=== PATIENT | female | born 1935 | race Caucasian/White ===

== ENCOUNTER 2016-09-11 17:14 | Emergency (ER) | payer MEDICARE ==
--- NOTE | 2016-09-11 17:49 | ED Physician Documentation ---
General Adult - HISTORIAN Historian: patient, spouse - HPI Stated Complaint: abd pain Chief Complaint: General Adult Onset: hours Timing: still present Severity: moderate Further Comments: yes (Pt is an 80 yo female with abd pain. Pain is in two areas, epigastic and suprapubic. No n/v. Pt reports normal bm's. Pain does not radiate to back. Pt states that she had GERD years ago. Pt has had cholecystectomy. Pt has hx vertigo and anxiety. Pt takes no meds. Pt denies significant PMHx, but my be an unreliable historian. Pt has rx's for lisinopril and omeprazole on record.) - ROS CONST: no problems EYES/ENT: none CVS/RESP: none GI/: abdominal pain. denies: vomiting, nausea MS/SKIN/LYMPH: none - PAST HX Past History: other (vertigo, anxiety, ? HTN, ? GERD.) Surgeries/Procedures: cholecystectomy, other (appendectomy, hysterectomy, tonsillectomy, orthopedic surgery) Allergies/Adverse Reactions: Allergies Allergy/AdvReac Type Severity Reaction Status Date / Time Penicillins Allergy Hives Verified 09/11/16 17:57 steriod injections Allergy Unknown Uncoded 03/07/13 13:04 Home Medications: Ambulatory Orders Medication Instructions Recorded Lisinopril [Zestril] 10 mg PO DAILY #30 tablet 09/11/16 Ranitidine HCl 150 mg PO DAILY #30 tablet 09/11/16 - SOCIAL HX Smoking History: non-smoker - FAMILY HX Family History: No - REVIEWED ASSESSMENTS Nursing Assessment Reviewed: Yes Vitals Reviewed: Yes Progress - Progress Progress: U/a - neg GI cocktail Sx resolved after GI cocktail. Pt had some very high bp readings in ER, but disliked bp cuff and would clench her arm during readings. Manual bp cuff showed bp 170/100. Will will restart lisinopril 10 mg po qd. Rx Ranitidine 150 mg po qam. Rx Lisinopril 10 mg po qd and f/u at clinic. Pt will call clinic to establish with pcp. - EKG/XRAY/CT EKG: NSR (HR=84; non-specific T-wave changes.) XRAY: chest (cardiomegally), abdomen (non-specific bowel gas pattern, limited study.) General Adult Physical Exam - PHYSICAL EXAM GENERAL APPEARANCE: mild distress EENT: pharynx normal NECK: normal inspection, supple RESPIRATORY: no resp distress, chest non-tender, breath sounds normal CVS: reg rate & rhythm, heart sounds normal ABDOMEN: soft, tenderness (epigastic and L abdomen, mild), decreased BS BACK: normal inspection, no CVA tenderness SKIN: warm/dry, normal color EXTREMITIES: non-tender, normal range of motion NEURO: oriented X3, motor nml, sensation nml, other Discharge Clincal Impression: GERD, Hypertension Prescriptions: Lisinopril [Zestril] 10 mg PO DAILY #30 tablet Ranitidine HCl 150 mg PO DAILY #30 tablet Referrals: Bhavya Diaz FNP [Primary Care Provider] - Home Medications: Ambulatory Orders Lisinopril [Zestril] 10 mg PO DAILY #30 tablet 09/11/16 Ranitidine HCl 150 mg PO DAILY #30 tablet 09/11/16 Condition: Good Disposition: 01 HOME, SELF-CARE Decision to Admit: NO Decision Time: 18:56
[2016-09-11 18:03] LABS: BASOPHILS % 0.4 (0.0-1.5); EOSINOPHILS % 0.6 % (0.0-6.8); MEAN CORPUSCULAR HEMOGLOBIN 30.4 pg (28.0-34.0); MEAN CORPUSCULAR VOLUME 90.1 fl (80.0-100.0); MONOCYTES % 3.4 % (0.0-11.0); NEUTROPHILS # 4.7 # k/uL (1.4-7.7)
[2016-09-11 18:14] LABS: eGFR (African) > 60; eGFR (Non-African) > 60
[2016-09-11] MEDS ORDERED: PANTOPRAZOLE SODIUM 40 MG in 0.9 % SODIUM CHLORIDE 50 ML IV SCH (18:15)
[2016-09-11] MEDS ORDERED: MAG HYDROX/AL HYDROX/SIMETH 30 ML, Lidocaine 2%Visc 15ml 20 MG, PHENobarb/HYOSCY/ATROPI... PO ONE ×3 (18:19)
[2016-09-11] MEDS ORDERED: Lidocaine 2%Visc 15ml 20 MG/ML UDC ONE (18:21)
[2016-09-11] MEDS ORDERED: MAGNESIUM HYDROXIDE/AL HYDROX 30 ML UDC PO ONE (18:21)
[2016-09-11] MEDS ORDERED: LISINOPRIL 5 MG TABLET PO ONE (18:57)
[2016-09-11 20:00] VITALS: BP 174/97
--- NOTE | 2016-09-11 22:33 | Diagnostic Imaging Report ---
Name: GWENDOLYN THOMPSON ~~ ~~ : 33 ~~ Acc #: [id number]~~ DOS: Sep 11, 2016 6:11:17 PM CDT ~~ Mod: CR ~~ Desc: CHEST 1 of 1 RAINER WAGONER Kostas REED~ [address] [address] ~ ~ ~ ~ Report Submission Date: Sep 11, 2016 6:47:16 PM CDT Patient ~ Study Name: GWENDOLYN THOMPSON ~ Date: Sep 11, 2016 6:11:17 PM CDT ~ Modality Type: CR Gender: F ~ Description: CHEST : 33 ~ Institution: [facility] Physician: RAINER WAGONER ~ ~ ~ ~ AP portable upright radiograph the chest Clinical history epigastric pain Technique AP portable upright FINDINGS: ~ The lung morgan are clear. ~There is cardiomegaly. ~There is no pleural effusion or pneumothorax. ~The bony thorax is unremarkable. ~There is a calcified granuloma in the right lung. ~Thoracic spine dextroscoliosis is present. ~Some aortic tortuosity is present. ~ IMPRESSION: ~ Cardiomegaly No acute infiltrate ~ Electronically signed on Sep 11, 2016 6:47:16 PM CDT by: Eric STEWART
--- NOTE | 2016-09-11 22:34 | Diagnostic Imaging Report ---
Name: GWENDOLYN THOMPSON ~~ ~~ : 33 ~~ Acc #: [id number]~~ DOS: Sep 11, 2016 6:12:45 PM CDT ~~ Mod: CR ~~ Desc: ABDOMEN 1 of 1 RAINER WAGONER~ [address] [address] ~ ~ ~ ~ Report Submission Date: Sep 11, 2016 6:48:42 PM CDT Patient ~ Study Name: GWENDOLYN THOMPSON ~ Date: Sep 11, 2016 6:12:45 PM CDT ~ Modality Type: CR Gender: F ~ Description: ABDOMEN : 33 ~ Institution: [facility] Physician: RAINER WAGONER ~ ~ ~ ~ AP portable abdomen Clinical history pain Technique portable radiograph of the abdomen in the upright position FINDINGS: ~ There is no free air The bowel gas pattern is nonspecific. ~No renal calcifications are seen. ~There is limited visualization of the organs of the abdomen due to overlying roles of fat. ~ IMPRESSION: ~ Nonspecific bowel gas pattern Very limited study Consider CT for further evaluation ~ Electronically signed on Sep 11, 2016 6:48:42 PM CDT by: Eric STEWART
[2016-09-12 05:54] LABS: APPEARANCE,URINE CLOUDY (CLEAR); COLOR,URINE YELLOW (YELLOW); OCCULT BLOOD,URINE TRACE-INTACT (NEGATIVE); PH URINE 7.5 (5.0 - 8.0); UROBILINOGEN URINE 0.2 Eu (0.2-1.0)
== END 2016-09-11 19:22 | disposition home or self-care (01) ==
LOC: ED 17:14
DX: K21.9 Gastro-esophageal reflux disease without esophagitis (principal); I10 Essential (primary) hypertension
CPT/HCPCS: 36415; 71010; 74000; 80053; 81002; 82150; 82550; 82553; 84484; 85025; 93005; A9270; 99283

== ENCOUNTER 2017-01-10 18:19 | Emergency (ER) | payer MEDICARE ==
--- NOTE | 2017-01-10 18:48 | ED Physician Documentation ---
General Adult - HISTORIAN Historian: patient - HPI Stated Complaint: abd pain, nausea/vomiting Chief Complaint: General Adult Onset: days ago Timing: still present Severity: moderate Further Comments: yes (Pt is an 81 yo female who had been having abd pain and cough about 2 weeks ago. Pt's neighbor was helping with her care and according to family who just learned of this 3 days ago, the pt was given 3 extra- strength Tylenol (=1,500 mg) every 4 hours for more than a week, along with dayquill and theraflu. Pt now has abd pain, distention, and nausea/vomiting. BP on presentation is 198/97.) - ROS CONST: other (malaise) EYES/ENT: none CVS/RESP: none GI/: abdominal pain, vomiting, nausea MS/SKIN/LYMPH: none - PAST HX Past History: other (vertigo, anxiety, HTN, GERD) Surgeries/Procedures: cholecystectomy, hysterectomy, other (appendectomy, orthopedic surgery, tonsillectomy) - SOCIAL HX Smoking History: non-smoker - FAMILY HX Family History: No - VITAL SIGNS Vital Signs: Vital Signs Temp Pulse Resp BP Pulse Ox 174/97 09/11/16 19:54 - REVIEWED ASSESSMENTS Nursing Assessment Reviewed: Yes Vitals Reviewed: Yes <Clarence Fitzgerald - Last Filed: 01/10/17 19:05> - VITAL SIGNS Vital Signs: Vital Signs Temp Pulse Resp BP Pulse Ox 98.4 F 100 H 20 197/88 92 01/10/17 18:20 01/10/17 18:20 01/10/17 18:20 01/10/17 18:20 01/10/17 18:20 <nAmol Lewis - Last Filed: 01/10/17 21:30> - PAST HX Allergies/Adverse Reactions: Allergies Allergy/AdvReac Type Severity Reaction Status Date / Time Penicillins Allergy Hives Verified 01/10/17 19:19 steriod injections Allergy Unknown Uncoded 03/07/13 13:04 Home Medications: Ambulatory Orders Medication Instructions Recorded Lisinopril [Zestril] 10 mg PO DAILY #30 tablet 09/11/16 Progress - Progress Progress: Care transferred to Dr. Lewis at 1900. <Clarence Fitzgerald - Last Filed: 01/10/17 19:05> ED Results Lab/Radiology - Lab Results Lab Results: Lab Results 01/10/17 01/10/17 01/10/17 19:33 19:33 19:32 WBC RBC Hgb Hct MCV MCH MCHC RDW Plt Count Neut % (Auto) Lymph % (Auto) [place] % (Auto) Eos % (Auto) Baso % (Auto) Neut # (Auto) Lymph # (Auto) [place] # (Auto) Eos # (Auto) Baso # (Auto) Reactive Lymphs % Reactive Lymphs # Sodium 142 mmol/L mmol/L (136-145) Potassium 3.5 mmol/L mmol/L (3.5-5.0) Chloride 99 mmol/L mmol/L (98-110) Carbon Dioxide 35 mmol/L H mmol/L (20-32) BUN 18 mg/dL mg/dL (10-26) Creatinine 0.6 mg/dL mg/dL (0.4-1.5) Estimated Creat Clear 133 Est GFR ( Amer) > 60 (60 - ) Est GFR (Non-Af Amer) > 60 (60 - ) Glucose 144 mg/dL H mg/dL (70-99) Calcium 8.9 mg/dL mg/dL (8.5-10.5) Total Bilirubin 0.4 mg/dL mg/dL (0.2-1.2) AST 28 U/L U/L (0-41) ALT 12 U/L U/L (0-45) Alkaline Phosphatase 85 U/L U/L (46-116) Creatine Kinase 56 U/L U/L (0-225) Troponin I < 0.03 ng/mL L ng/mL (0.03-0.06) Total Protein 7.1 g/dL g/dL (6.0-8.5) Albumin 4.2 g/dL g/dL (3.0-5.5) Acetaminophen < 10.0 ug/mL L ug/mL (10.0-30.0) 01/10/17 19:32 WBC 19.50 K/ul H K/ul (4.00-12.00) RBC 3.91 M/ul M/ul (3.90-5.20) Hgb 11.7 g/dL L g/dL (12.0-16.0) Hct 34.7 % % (34.5-46.5) MCV 88.8 fl fl (80.0-100.0) MCH 30.0 pg pg (28.0-34.0) MCHC 33.8 g/dL g/dL (30.0-36.0) RDW 13.4 % % (11.3-14.3) Plt Count 395 K/mm3 K/mm3 (130-400) Neut % (Auto) 60.7 % % (39.0-79.0) Lymph % (Auto) 28.9 % % (16.0-50.0) [place] % (Auto) 3.1 % % (0.0-11.0) Eos % (Auto) 5.5 % % (0.0-6.8) Baso % (Auto) 0.6 (0.0-1.5) Neut # (Auto) 11.8 # k/uL H # k/uL (1.4-7.7) Lymph # (Auto) 5.6 # k/uL H # k/uL (0.6-4.0) [place] # (Auto) 0.6 # k/uL # k/uL (0.0-0.9) Eos # (Auto) 1.1 # k/uL H # k/uL (0.0-0.6) Baso # (Auto) 0.1 # k/uL # k/uL (0.0-0.5) Reactive Lymphs % 1.2 % % (0.0-5.0) Reactive Lymphs # 0.2 # k/uL # k/uL (0.0-0.8) Sodium Potassium Chloride Carbon Dioxide BUN Creatinine Estimated Creat Clear Est GFR ( Amer) Est GFR (Non-Af Amer) Glucose Calcium Total Bilirubin AST ALT Alkaline Phosphatase Creatine Kinase Troponin I Total Protein Albumin Acetaminophen - Orders Orders: ED Orders Category Date Time Status Place IV Lock 1T Care 01/10/17 18:57 Active CHEST 1 VIEW [RAD] Stat Exams 01/10/17 18:56 Taken ACETAMINOPHEN LEVEL Stat Lab 01/10/17 19:33 Completed CBC/PLATELET/DIFF Routine Lab 01/10/17 19:32 Completed CMP Routine Lab 01/10/17 19:32 Completed CREATINE KINASE Routine Lab 01/10/17 19:32 Completed TROPONIN I (cTnI) Stat Lab 01/10/17 19:33 Completed 0.9 % Sodium Chloride [Normal Saline] 1,000 ml Med 01/10/17 19:44 Discontinued IV .STK-MED 0.9 % Sodium Chloride [Normal Saline] 1,000 ml Med 01/10/17 20:00 Ordered IV Q5H Azithromycin [Zithromax] Med 01/10/17 21:17 Discontinued 500 mg PO NOW ONE Ondansetron HCl/Pf [Zofran 4 mg/2 ml] Med 01/10/17 18:57 Discontinued 4 mg IVP NOW ONE EKG WITH COMPARISON Stat Ther 01/10/17 18:56 Ordered <Anmol Lewis - Last Filed: 01/10/17 21:30> General Adult Physical Exam - PHYSICAL EXAM GENERAL APPEARANCE: moderate distress EENT: pharynx normal NECK: normal inspection, supple RESPIRATORY: no resp distress, chest non-tender, breath sounds normal CVS: reg rate & rhythm, heart sounds normal ABDOMEN: soft, tenderness (moderate mid abdominal tenderness), distended BACK: normal inspection, no CVA tenderness SKIN: warm/dry, normal color EXTREMITIES: non-tender NEURO: oriented X3, motor nml, sensation nml <Clarence Fitzgerald - Last Filed: 01/10/17 19:05> Discharge <Clarence Fitzgerald - Last Filed: 01/10/17 19:05> Comments: pt refuses hosp - will tx at home. friends will asst w/care. liver appears ok. dietary non compliance. frienmds will asst also w/bp meds compliance. she will f/u w/pcp very soon Decision to Admit: NO Decision Time: 21:29 <Anmol Lewis - Last Filed: 01/10/17 21:30> Clincal Impression: acute pneumonia/bronchitis, htn, medication confusion/non compliance Referrals: Montse Mackenzie PA [Primary Care Provider] - 2 Days Home Medications: Ambulatory Orders Lisinopril [Zestril] 10 mg PO DAILY #30 tablet 09/11/16 Condition: Good Disposition: 01 HOME, SELF-CARE
[2017-01-10] MEDS: ONDANSETRON HCL/PF 4 MG/ 2ML VIAL IVP ONE (19:30)
[2017-01-10 19:39] LABS: BASOPHILS % 0.6 (0.0-1.5); EOSINOPHILS % 5.5 % (0.0-6.8); MEAN CORPUSCULAR VOLUME 88.8 fl (80.0-100.0); MONOCYTES % 3.1 % (0.0-11.0); NEUTROPHILS # 11.8 # k/uL (1.4-7.7)
[2017-01-10] MEDS ORDERED: 0.9 % SODIUM CHLORIDE 1,000 ML IV ONE (19:44)
[2017-01-10] MEDS: 0.9 % SODIUM CHLORIDE 1,000 ML IV SCH (19:52)
[2017-01-10 19:56] LABS: eGFR (African) > 60; eGFR (Non-African) > 60
[2017-01-10] MEDS: AZITHROMYCIN 250 MG TABLET PO ONE (21:23)
[2017-01-10 22:08] VITALS: BP 189/78
--- NOTE | 2017-01-11 06:56 | Diagnostic Imaging Report ---
RAINER WAGONER [facility] [address] [facility], [facility] [address] [address] Report Submission Date: Jan 10, 2017 7:16:08 PM CDT Patient Study Name: GWENDOLYN THOMPSON Date: Jan 10, 2017 7:00:53 PM CDT Modality Type: CR Gender: F Description: CHEST : 33 Institution: [facility] Physician: RAINER WAGONER Chest -one view CLINICAL HISTORY: Cough. FINDINGS: Examination of the chest single portable AP view 01/10/2017 1900 hr with comparison to examination of 09/11/2016 demonstrates patchy infiltrates in the bases and in the peripheral right lung. Cardiovascular and mediastinal silhouettes are stable. Bony thorax is intact. IMPRESSION: Patchy bibasilar infiltrates with peripheral infiltrate in the right lung. Aortic atherosclerosis. Electronically signed on Jan 10, 2017 7:16:08 PM CDT by: Abelardo STEWART
== END 2017-01-10 21:44 | disposition home or self-care (01) ==
LOC: ED 18:19
DX: J18.9 Pneumonia, unspecified organism (principal); J40 Bronchitis, not specified as acute or chronic; I10 Essential (primary) hypertension; Z91.14 Patient's other noncompliance with medication regimen
CPT/HCPCS: 71010; 80053; 82550; 84484; 85025; G0477; J2405; J7030; 80304; 96361; 96374; 99283; S1016

== ENCOUNTER 2017-02-23 16:55 | Emergency (ER) | payer MEDICARE ==
--- NOTE | 2017-02-23 17:08 | ED Physician Documentation ---
General Adult - HISTORIAN Historian: patient, spouse - HPI Stated Complaint: chest pain Chief Complaint: Chest Pain Onset: other (2 weeks ) Timing: still present, worse Severity: moderate Modifying Factors: she has increased pain with cough or sneeze Context: with movement she has decrease in pain Quality: sharp Location: left chest and shoulder - she has pain with palpation Further Comments: no Last known Well Date: 01/11/17 Last Known Well Time: 07:00 Last known Well Code/Unknown Code: Unknown - ROS CONST: sweating, recent illness, weakness. denies: fever, chills EYES/ENT: denies: none CVS/RESP: chest pain, shortness of breath. denies: cough GI/: denies: abdominal pain MS/SKIN/LYMPH: none NEURO/PSYCH: denies: headache, dizziness - PAST HX Past History: other (HTN ) Other History: none Surgeries/Procedures: other (years ago and does not want to discuss ) Immunizations: referred to PCP - SOCIAL HX Smoking History: non-smoker - FAMILY HX Family History: No - VITAL SIGNS Vital Signs: Vital Signs Temp Pulse Resp BP Pulse Ox 189/78 01/10/17 22:02 - REVIEWED ASSESSMENTS Nursing Assessment Reviewed: Yes Vitals Reviewed: Yes <Angelia Bolton - Last Filed: 02/23/17 17:57> - VITAL SIGNS Vital Signs: Vital Signs Temp Pulse Resp BP Pulse Ox 99.7 F H 76 30 H 184/93 99 02/23/17 16:55 02/23/17 16:55 02/23/17 16:55 02/23/17 16:55 02/23/17 16:55 <Adama Menjivar - Last Filed: 02/23/17 19:04> - PAST HX Allergies/Adverse Reactions: Allergies Allergy/AdvReac Type Severity Reaction Status Date / Time Penicillins Allergy Hives Verified 02/23/17 17:19 steriod injections Allergy Unknown Uncoded 03/07/13 13:04 Home Medications: Ambulatory Orders Medication Instructions Recorded Lisinopril [Zestril] 10 mg PO DAILY 02/23/17 ED Results Lab/Radiology - Orders Orders: D Dimer elevated BUN/Creat normal will do CT of chest to R/O - PE <Angelia Bolton - Last Filed: 02/23/17 17:57> - Lab Results Lab Results: Lab Results 02/23/17 02/23/17 02/23/17 17:25 17:25 17:25 WBC 8.50 K/ul K/ul (4.00-12.00) RBC 4.25 M/ul M/ul (3.90-5.20) Hgb 12.2 g/dL g/dL (12.0-16.0) Hct 37.6 % % (34.5-46.5) MCV 88.4 fl fl (80.0-100.0) MCH 28.6 pg pg (28.0-34.0) MCHC 32.4 g/dL g/dL (30.0-36.0) RDW 14.1 % % (11.3-14.3) Plt Count 191 K/mm3 K/mm3 (130-400) Neut % (Auto) 34.1 % L % (39.0-79.0) Lymph % (Auto) 53.9 % H % (16.0-50.0) [place] % (Auto) 4.1 % % (0.0-11.0) Eos % (Auto) 5.3 % % (0.0-6.8) Baso % (Auto) 0.9 (0.0-1.5) Neut # (Auto) 2.9 # k/uL # k/uL (1.4-7.7) Lymph # (Auto) 4.6 # k/uL H # k/uL (0.6-4.0) [place] # (Auto) 0.4 # k/uL # k/uL (0.0-0.9) Eos # (Auto) 0.4 # k/uL # k/uL (0.0-0.6) Baso # (Auto) 0.1 # k/uL # k/uL (0.0-0.5) Reactive Lymphs % 1.6 % % (0.0-5.0) Reactive Lymphs # 0.1 # k/uL # k/uL (0.0-0.8) D-Dimer 2110 ng/mL H ng/mL (6.0-682) Sodium 140 mmol/L mmol/L (137-145) Potassium 4.2 mmol/L mmol/L (3.5-5.1) Chloride 104 mmol/L mmol/L (98-107) Carbon Dioxide 27 mmol/L mmol/L (22-30) BUN 34 mg/dL H mg/dL (7-17) Creatinine 0.90 mg/dL mg/dL (0.52-1.04) Estimated Creat Clear 105 Est GFR ( Amer) > 60 (60 - ) Est GFR (Non-Af Amer) > 60 (60 - ) Glucose 109 mg/dL H mg/dL (74-106) Calcium 8.8 mg/dL mg/dL (8.4-10.2) Total Bilirubin 0.3 mg/dL mg/dL (0.2-1.3) AST 34 U/L U/L (15-46) ALT 31 U/L U/L (13-69) Alkaline Phosphatase 89 U/L U/L (38-126) Troponin I < 0.03 ng/mL L ng/mL (0.03-0.06) NT-Pro-B Natriuret Pep 381.6 pg/mL pg/mL (15.0-450.0) Total Protein 7.0 g/dL g/dL (6.3-8.2) Albumin 3.7 g/dL g/dL (3.5-5.0) - Orders Orders: ED Orders Category Date Time Status Place IV Lock 1T Care 02/23/17 17:22 Active CHEST P.A.&LAT 2 VIEWS [RAD] Stat Exams 02/23/[address] CHEST W/ CONTRAST Stat Exams 02/23/17 Taken BNP [NT-proBNP] Urgent Lab 02/23/17 17:25 Completed CBC/PLATELET/DIFF Routine Lab 02/23/17 17:25 Completed CMP [CMP] Routine Lab 02/23/17 17:25 Completed D DIMER Urgent Lab 02/23/17 17:25 Completed TROPONIN I (cTnI) Urgent Lab 02/23/17 17:25 Completed Hydralazine HCl [Apresoline] Med 02/23/17 18:52 Once 25 mg PO NOW ONE EKG WITH COMPARISON Urgent Ther 02/23/17 Ordered <Adama Menjivar - Last Filed: 02/23/17 19:04> General Adult Physical Exam - PHYSICAL EXAM EENT: eye inspection normal, ENT inspection normal, pharynx normal NECK: normal inspection, thyroid normal RESPIRATORY: wheezes (left lower lobe ), other (mild distress with talking or movement ) ABDOMEN: soft, no organomegaly, normal bowel sounds, no distension, non-tender SKIN: warm/dry, normal color EXTREMITIES: non-tender NEURO: oriented X3, CN's nml as tested, motor nml, sensation nml, mood/affect nml, cognition normal <Angelia Bolton - Last Filed: 02/23/17 17:57> Discharge <Angelia Bolton - Last Filed: 02/23/17 17:57> Decision to Admit: NO Date of Decison to Admit: 02/23/17 Decision Time: 19:03 <Adama Menjivar - Last Filed: 02/23/17 19:04> Clincal Impression: Costochondral chest pain Referrals: Montse Mackenzie PA [Primary Care Provider] - 2 Days Condition: Stable Disposition: 01 HOME, SELF-CARE
[2017-02-23 17:31] LABS: BASOPHILS % 0.9 (0.0-1.5); EOSINOPHILS % 5.3 % (0.0-6.8); MEAN CORPUSCULAR HEMOGLOBIN 28.6 pg (28.0-34.0); MEAN CORPUSCULAR VOLUME 88.4 fl (80.0-100.0); MONOCYTES % 4.1 % (0.0-11.0); NEUTROPHILS # 2.9 # k/uL (1.4-7.7)
[2017-02-23 17:38] LABS: eGFR (African) > 60; eGFR (Non-African) > 60
--- NOTE | 2017-02-23 18:57 | Diagnostic Imaging Report ---
[facility] [address] [facility] [address], [place]. [address] Report Submission Date: Feb 23, 2017 6:02:04 PM CDT Patient Study Name: GWENDOLYN THOMPSON Date: Feb 23, 2017 5:28:07 PM CDT Modality Type: CR Gender: F Description: CHEST : 33 Institution: [facility] Physician: SHAHZAD SMITH Examination: PA and lateral chest. History: Evaluate lung morgan. Comparison exam: 10 January 2017 Findings: PA lateral chest demonstrate a normal cardiac and mediastinal silhouette. No focal infiltrate. No blunting of the costophrenic margins. Right lung granuloma. Osseous structures are appropriate for age. Impression: No acute pulmonary process. Electronically signed on Feb 23, 2017 6:02:04 PM CDT by: Paul STEWART
[2017-02-23] MEDS: HYDRALAZINE HCL 25 MG TABLET PO ONE (19:00)
[2017-02-23 19:49] VITALS: BP 156/64
--- NOTE | 2017-02-24 05:47 | Diagnostic Imaging Report ---
SHAHZAD SMITH [facility] [address] [facility] [address] [place], [place]. [address] Report Submission Date: Feb 23, 2017 7:22:58 PM CDT Patient Study Name: GWENDOLYN THOMPSON Date: Feb 23, 2017 6:23:12 PM CDT Modality Type: CT\SR Gender: F Description: CT ANGIOGRAPHY CHEST 7 : 33 Institution: [facility] Physician: SHAHZAD SMITH Examination: CTA chest History: Chest discomfort. Comparison exam: Plain film chest dated 23 February 2017 Technique: CT chest pulmonic pulmonary embolism protocol. Findings: No evidence for luminal filling defect within the main pulmonary arteries to the 3rd order branch vessels bilaterally. Thoracic aorta without aneurysmal dilation. No evidence for dissection flap. Mild peripheral atherosclerotic disease. Lungs demonstrate dependent atelectasis bilaterally. Right middle lung base consolidation. Patchy ground glass infiltrates bilaterally. No evidence for posterior pleural effusion or thickening. Right middle lung and left lower lung granuloma. Hilar calcified granuloma. No mediastinal or mahogany mass or pathologic adenopathy. Cardiac silhouette not enlarged. No pericardial effusion. Osseous structures demonstrate degenerative changes. Lower neck structures, axilla regions, and upper abdominal organs are without gross irregularity. Bilateral renal cysts. Impression: No evidence for pulmonary embolism by CT criteria. No evidence for thoracic aortic dissection or abnormality. Right midlung basilar consolidation. Patchy ground glass parenchymal infiltrates bilaterally without effusion. Diffuse infiltrate versus pulmonary edema. Electronically signed on Feb 23, 2017 7:22:58 PM CDT by: Paul STEWART
== END 2017-02-23 19:43 | disposition home or self-care (01) ==
LOC: ED 16:55
DX: M94.0 Chondrocostal junction syndrome [Tietze] (principal)
CPT/HCPCS: 71020; 71260; 80053; 83880; 84484; 85025; 85379; Q9966; 99283; S1016

== ENCOUNTER 2017-07-27 13:00 | Outpatient (CLI) | payer MEDICARE | END 2017-07-27 13:02 | LOC: CARD 13:00 | PROVIDERS: ATTEND Internal Medicine Cardiovascular Disease | DX: R01.1 Cardiac murmur, unspecified (principal); R07.9 Chest pain, unspecified; I10 Essential (primary) hypertension | CPT/HCPCS: G0463 ==

== ENCOUNTER 2018-05-24 17:02 | Emergency (ER) | payer MEDICARE ==
--- NOTE | 2018-05-24 17:25 | ED Physician Documentation ---
General Adult - HISTORIAN Historian: paramedics - HPI Stated Complaint: multiple complaints Chief Complaint: Fall Additional Information: intro self as [employer]. pt presents to the ED via EMS c/o tail bone pain. EMS reports over the past several weeks they have been out to pt home on fall assist calls. each time pt refuses to go to the ED. Pt arrives incontinent of urine and reports this has only started recently. pt lives at home with her . EMS has concerns pt is unable to care for her self at home. pt admits to frequent falls recently. Dr Menjivar PCP pt denies current chest pain, dyspnea, syncope/near syncope, headache, dizziness, visual disturbances, n/v/d, fever/chills, rash, sick contacts, melena or hematochezia, bleeding or easy bruising, change in bowel function, no recent weight loss/gain, anxiety or depression. ROS Negative unless otherwise specified. - ROS CONST: weakness. denies: fever, chills EYES/ENT: denies: sore throat, nasal drainage, nasal congestion CVS/RESP: denies: chest pain, shortness of breath, cough GI/: problems urinating. denies: abdominal pain, vomiting, nausea MS/SKIN/LYMPH: ankle swelling NEURO/PSYCH: dizziness. denies: headache - PAST HX Past History: hypertension, other (Elevated BP, OA, GERD, Obesity) Allergies/Adverse Reactions: Allergies Allergy/AdvReac Type Severity Reaction Status Date / Time Penicillins Allergy Hives Verified 05/24/18 18:17 steriod injections Allergy Unknown Uncoded 05/24/18 18:17 Home Medications: Ambulatory Orders Medication Instructions Recorded Cetirizine HCl [Zyrtec] 10 mg PO DAILY u2 10/13/17 Levofloxacin [Levaquin] 500 mg PO DAILY #7 tablet 05/24/18 - SOCIAL HX Smoking History: non-smoker Alcohol Use: none Drug Use: none - FAMILY HX Family History: No - VITAL SIGNS Vital Signs: Vital Signs Temp Pulse Resp BP Pulse Ox 156/64 02/23/17 19:40 - REVIEWED ASSESSMENTS Nursing Assessment Reviewed: Yes Vitals Reviewed: Yes Progress - Progress Progress: 2000: consulted dr oreilly who accepted pt for acute admission. 2029: pt now refuses admission. Advised pt and i would be required to make a report with the [facility] senior services. 2039 Dr Oreilly present. Discussed admission with pt. Pt refused. AMA form signed. pt agreeable to allow IV antibiotics to complete. 2119 Report made by me to [facility]. Monae Garcia. - EKG/XRAY/CT EKG: NSR, no ST T wave changes Comments: rate 83 no ectopy normal intervals/axis/qrs ED Results Lab/Radiology - Radiology Radiology Impressions: Report Submission Date: May 24, 2018 7:02:39 PM POLE CLASSIFIER Patient Study Name: GWENDOLYN THOMPSON R Date: May 24, 2018 6:25:22 PM POLE CLASSIFIER Modality Type: DX Gender: F Description: SPINE : 33 Institution: [facility] Physician: JAMAL MARTE Coccyx 2 views Date of Exam: May 24, 2018. History: 82/F SACRUM & COCCYX - PAIN / FALL PT DENIED ANY ADDITIONAL IMAGING DUE TO PAIN AND WOULD NOT LET ADDITIONAL OR REPEAT IMAGES BE TAKEN. LATERAL IM AGE WAS THE ONLY LATERAL THAT WAS OBTAINED FOR THE EXAM DUE TO PATIENT REFUSAL. (Hx) / ITS.REASON pain/fall (DICOM Hx) / ITS.REASON weakness (Pt comments) Findings: The examination is of limited diagnostic capabilities. No definite displaced fracture is identified. There is a catheter in the right pelvis. Gas and stool superimposing is the coccyx in the AP view. Impression: Limited study. No evidence of displaced fracture. Electronically signed on May 24, 2018 7:02:39 PM POLE CLASSIFIER by: Keegan Harvey Report Submission Date: May 24, 2018 6:38:13 PM POLE CLASSIFIER Patient Study Name: GWENDOLYN THOMPSON R Date: May 24, 2018 6:04:25 PM POLE CLASSIFIER Modality Type: DX Gender: F Description: CHEST : 33 Institution: [facility] Physician: JAMAL MARTE Chest AP portable Date of Exam: May 24, 2018. History: 82/F PCXR - WEAKNESS (Hx) / ITS.REASON weakness (DICOM Hx) / ITS.REASON weakness (Pt comments) Findings: The examination is limited by body habitus. There is a right lower lobe infiltrate and atelectasis. Borderline cardiomegaly is evident. The trachea is midline. Impression: Right lower lobe infiltrate and atelectasis. Electronically signed on May 24, 2018 6:38:13 PM POLE CLASSIFIER by: Keegan Harvey - Orders Orders: ED Orders Category Date Time Status Place IV Lock 1T Care 05/24/18 17:22 Ordered Urinary catheterization 1T Care 05/24/18 17:21 Ordered CHEST 1VIEW [RAD] Stat Exams 05/24/18 Ordered BLOOD CULTURE Stat Lab 05/24/18 Ordered CBC/PLATELET/DIFF Stat Lab 05/24/18 17:19 Ordered CMP Stat Lab 05/24/18 17:19 Ordered INFLUENZA A&B Stat Lab 05/24/18 Uncollected URINALYSIS Stat Lab 05/24/18 17:19 Ordered URINE CULTURE Stat Lab 05/24/18 Uncollected 0.9 % Sodium Chloride [Normal Saline] 1,000 ml Med 05/24/18 17:30 Ordered IV 1T EKG WITH COMPARISON Stat Ther 05/24/18 Ordered General Adult Physical Exam - PHYSICAL EXAM GENERAL APPEARANCE: no distress EENT: eye inspection normal, ENT inspection normal, pharynx normal, no signs of dehydration, GUERO, no nystagmus, TM's nml NECK: normal inspection, thyroid normal RESPIRATORY: no resp distress, chest non-tender, other (diminished). No: wheezes, rales, rhonchi CVS: reg rate & rhythm, heart sounds normal, equal pulses, no murmur, no gallop, PMI nml, no JVD, no friction rub, 24 ABDOMEN: soft, no organomegaly, normal bowel sounds, no abdominal bruit, no distension BACK: normal inspection, no CVA tenderness, other (Sacral/coccyx tenderness. no other vertebral tenderness. ) SKIN: normal color, warm/dry, NR, INT, PAL, DR EXTREMITIES: non-tender, normal range of motion, no edema, edema (1+ pedal edema) NEURO: motor nml, sensation nml, mood/affect nml, other (oriented to person, place. no insight into current status. ) Discharge Clincal Impression: Hypokalemia Pneumonia Qualifiers: Pneumonia type: due to unspecified organism Laterality: unspecified laterality Lung location: unspecified part of lung Qualified Code(s): J18.9 - Pneumonia, unspecified organism Prescriptions: Levofloxacin [Levaquin] 500 mg PO DAILY #7 tablet Referrals: Brennen Oreilly MD [Primary Care Provider] - 2 Days Condition: Stable Disposition: 07 AGAINST MEDICAL ADVICE Decision to Admit: NO Date of Decison to Admit: 05/24/18 Decision Time: 20:30
[2018-05-24] MEDS ORDERED: 0.9 % SODIUM CHLORIDE 1,000 ML IV SCH (17:30)
[2018-05-24] MEDS ORDERED: 0.9 % SODIUM CHLORIDE 1,000 ML IV ONE (19:26)
--- NOTE | 2018-05-24 19:38 | Diagnostic Imaging Report ---
ESTUARDO JAMAL [facility] [address] [facility] [address] [address] Report Submission Date: May 24, 2018 7:02:39 PM DIRECTOR OF PSYCHIATRY Patient Study Name: GWENDOLYN THOMPSON Date: May 24, 2018 6:25:22 PM DIRECTOR OF PSYCHIATRY Modality Type: DX Gender: F Description: SPINE : 33 Institution: [facility] Physician: JAMAL MARTE Coccyx 2 views Date of Exam: May 24, 2018. History: 82/F SACRUM & COCCYX - PAIN / FALL PT DENIED ANY ADDITIONAL IMAGING DUE TO PAIN AND WOULD NOT LET ADDITIONAL OR REPEAT IMAGES BE TAKEN. LATERAL IMAGE WAS THE ONLY LATERAL THAT WAS OBTAINED FOR THE EXAM DUE TO PATIENT REFUSAL. (Hx) / ITS.REASON pain/fall (DICOM Hx) / ITS.REASON weakness (Pt comments) Findings: The examination is of limited diagnostic capabilities. No definite displaced fracture is identified. There is a catheter in the right pelvis. Gas and stool superimposing is the coccyx in the AP view. Impression: Limited study. No evidence of displaced fracture. Electronically signed on May 24, 2018 7:02:39 PM DIRECTOR OF PSYCHIATRY by: Keegan STEWART
--- NOTE | 2018-05-24 19:40 | Diagnostic Imaging Report ---
JAMAL MARTE [facility] [address] [facility] [address] [address] Report Submission Date: May 24, 2018 6:38:13 PM PIPELINES LABORER Patient Study Name: GWENDOLYN THOMPSON Date: May 24, 2018 6:04:25 PM PIPELINES LABORER Modality Type: DX Gender: F Description: CHEST : 33 Institution: [facility] Physician: JAMAL MARTE Chest AP portable Date of Exam: May 24, 2018. History: 82/F PCXR - WEAKNESS (Hx) / ITS.REASON weakness (DICOM Hx) / ITS.REASON weakness (Pt comments) Findings: The examination is limited by body habitus. There is a right lower lobe infiltrate and atelectasis. Borderline cardiomegaly is evident. The trachea is midline. Impression: Right lower lobe infiltrate and atelectasis. Electronically signed on May 24, 2018 6:38:13 PM PIPELINES LABORER by: Keegan STEWART
[2018-05-24 19:43] LABS: BASOPHILS % 0.4 (0.0-1.5); EOSINOPHILS % 3.1 % (0.0-6.8); MEAN CORPUSCULAR HEMOGLOBIN 29.6 pg (28.0-34.0); MONOCYTES % 4.7 % (0.0-11.0); NEUTROPHILS # 4.9 # k/uL (1.4-7.7)
[2018-05-24 19:54] LABS: eGFR (Non-African) > 60
[2018-05-24 20:00] LABS: APPEARANCE,URINE CLEAR (CLEAR); COLOR,URINE YELLOW (YELLOW)
[2018-05-24 20:01] LABS: OCCULT BLOOD,URINE TRACE-INTACT (NEGATIVE); UROBILINOGEN URINE 0.2 Eu (0.2-1.0)
[2018-05-24] MEDS ORDERED: POTASSIUM CHLORIDE 20 MEQ TABLET.ER PO ONE (20:02)
[2018-05-24] MEDS ORDERED: LEVOFLOXACIN 500MG/D5W 100ML 500 MG in PREMIX BAG 1 BAG IV ONE (20:18)
[2018-05-24] MEDS ORDERED: LEVOFLOXACIN 250MG/D5W 50ML 250 MG in PREMIX BAG 1 BAG IV ONE (20:19)
[2018-05-24] MEDS ORDERED: LEVOFLOXACIN 500MG/D5W 100ML 100 ML IV ONE (20:22)
[2018-05-24] MEDS ORDERED: LEVOFLOXACIN 250MG/D5W 50ML 50 ML IV ONE (20:22)
[2018-05-24 21:37] LABS: APPEARANCE,URINE CLEAR (CLEAR); COLOR,URINE YELLOW (YELLOW); OCCULT BLOOD,URINE TRACE-INTACT (NEGATIVE); UROBILINOGEN URINE 0.2 Eu (0.2-1.0)
[2018-05-24 22:09] VITALS: BP 155/75
== END 2018-05-24 22:08 | disposition left against medical advice (07) ==
LOC: ED 17:02
DX: E87.6 Hypokalemia (principal); J18.9 Pneumonia, unspecified organism; R29.6 Repeated falls; M53.3 Sacrococcygeal disorders, not elsewhere classified
CPT/HCPCS: 36415; 51702; 71045; 72220; 80053; 81002; 83605; 85025; 87040; 87086; 93005; 96365; 96366; 99284; 99285; A9270; J1956; J7030; S1016

== ENCOUNTER 2018-06-28 12:19 | Emergency (ER) | payer MEDICARE ==
[2018-06-28] MEDS ORDERED: 0.9 % SODIUM CHLORIDE 1,000 ML IV SCH (12:30)
--- NOTE | 2018-06-28 12:39 | ED Physician Documentation ---
General Adult - HISTORIAN Historian: patient, paramedics - HPI Stated Complaint: weakness Chief Complaint: General Adult Additional Information: Patient presents to ED via EMS after she could not get out of bed today due to weakness. EMS has responded to repeat calls for falls over the past several months. Patient was seen on 05/24/18 for pneumonia and signed out AMA. She has refused transport to hospital several times this month. Today she also refused, however, adult protective services threatened 96 hour hold if she declined transport to hospital. Her is currently at home alone. She reports urinary frequency and incontinence (especially with cough). Patient is supposed to take Lisinopril for blood pressure but has not been taking it. Blood pressure here is 189/106. Onset: hours (24) Timing: still present Severity: moderate Further Comments: no - ROS CONST: weakness. denies: fever EYES/ENT: denies: problems with vision CVS/RESP: cough. denies: chest pain, shortness of breath GI/: problems urinating MS/SKIN/LYMPH: none NEURO/PSYCH: anxiety - PAST HX Past History: hypertension Other History: none Surgeries/Procedures: none - SOCIAL HX Smoking History: non-smoker Alcohol Use: none Drug Use: none - FAMILY HX Family History: No - VITAL SIGNS Vital Signs: Vital Signs Temp Pulse Resp BP Pulse Ox 155/75 05/24/18 21:56 - REVIEWED ASSESSMENTS Nursing Assessment Reviewed: Yes Vitals Reviewed: Yes <Cristela Aguiar - Last Filed: 06/28/18 15:22> - VITAL SIGNS Vital Signs: Vital Signs Temp Pulse Resp BP Pulse Ox 98.5 F 100 H 19 144/83 96 06/28/18 12:20 06/28/18 15:50 06/28/18 15:50 06/28/18 15:50 06/28/18 15:50 <Clarence Fitzgerald - Last Filed: 07/01/18 19:07> - PAST HX Allergies/Adverse Reactions: Allergies Allergy/AdvReac Type Severity Reaction Status Date / Time Penicillins Allergy Hives Verified 07/01/18 18:48 steriod injections Allergy Unknown Uncoded 06/28/18 13:33 Home Medications: Ambulatory Orders Medication Instructions Recorded Lisinopril [Zestril] 10 mg PO D 07/01/18 Progress - Results/Orders Results/Orders: UA - Bilirubin 3+, Protein 3+, Leukocytes 3+. Patient is on AZO - Progress Progress: 1254 RN reports bloody mucus discharge from vaginal area. 1352 Patient unable to complete CT scan due to anxiety. [address] Menjivar, recommend detention placement for PT/OT. 1520 Patient refusing SNF, refusing home health. Does not meet inpatient criteria. Will discharge to home. Patient and want ambulance transfer back home. states, "I cannot get her into the house by myself". - EKG/XRAY/CT Comments: sinus tachycardia 103 bpm <Cristela Aguiar - Last Filed: 06/28/18 15:22> ED Results Lab/Radiology - Radiology Radiology Impressions: Examination: Plain film pelvis History: VAGINAL BLEEDING AND PELVIC PAIN. Comparison exams: None provided Findings: Single view of the pelvis demonstrates osteopenia. Rotated examination. Articular degenerative changes - most pronounced involving the right hip. No obvious displaced cortical lucency. Soft tissue attenuation. Catheter in bladder. Impression: Osteopenia and degenerative changes. No obvious displaced cortical lucency. Consider obtaining limited CT pelvis examination to further evaluate if clinically warranted. Electronically signed on Jun 28, 2018 2:53:41 PM GLOBAL COMMODITY MANAGER by: Paul Queen - Orders Orders: ED Orders Category Date Time Status Place IV Lock 1T Care 06/28/18 12:24 Ordered CHEST 1VIEW [RAD] Stat Exams 06/28/18 Ordered CBC/PLATELET/DIFF Routine Lab 06/28/18 Ordered CMP Routine Lab 06/28/18 Ordered NT-proBNP Stat Lab 06/28/18 Ordered TROPONIN I (cTnI) Stat Lab 06/28/18 Ordered UA W MICRO [UA W/MICRO IF INDICATED] Routine Lab 06/28/18 12:25 Ordered NORMAL SALINE @ 100 MLS/HR(1000ml) Med 06/28/18 12:30 Ordered 0.9 % Sodium Chloride [Normal Saline] 1,000 ml IV Q10H <Cristela Aguiar - Last Filed: 06/28/18 15:22> - Lab Results Lab Results: Lab Results 06/28/18 06/28/18 06/28/18 Unknown Unknown Unknown WBC 11.70 K/ul K/ul (4.00-12.00) RBC 4.82 M/ul M/ul (3.90-5.20) Hgb 14.7 g/dL g/dL (12.0-16.0) Hct 44.1 % % (34.5-46.5) MCV 91.0 fl fl (80.0-100.0) MCH 30.5 pg pg (28.0-34.0) MCHC 33.4 g/dL g/dL (30.0-36.0) RDW 14.0 % % (11.3-14.3) Plt Count 142 K/mm3 K/mm3 (130-400) Neut % (Auto) 43.3 % % (39.0-79.0) Lymph % (Auto) 47.6 % % (16.0-50.0) Cameron % (Auto) 6.7 % % (0.0-11.0) Eos % (Auto) 1.7 % % (0.0-6.8) Baso % (Auto) 0.7 (0.0-1.5) Neut # (Auto) 5.1 # k/uL # k/uL (1.4-7.7) Lymph # (Auto) 5.6 # k/uL H # k/uL (0.6-4.0) Cameron # (Auto) 0.8 # k/uL # k/uL (0.0-0.9) Eos # (Auto) 0.2 # k/uL # k/uL (0.0-0.6) Baso # (Auto) 0.1 # k/uL # k/uL (0.0-0.5) Sodium 135 mmol/L L mmol/L (136-145) Potassium 3.1 mmol/L L mmol/L (3.5-5.1) Chloride 95 mmol/L L mmol/L (98-107) Carbon Dioxide 30 mmol/L mmol/L (22-30) BUN 20 mg/dL H mg/dL (7-17) Creatinine 0.66 mg/dL mg/dL (0.52-1.04) Est GFR ( Amer) > 60 (60 - ) Est GFR (Non-Af Amer) > 60 (60 - ) Glucose 102 mg/dL mg/dL (74-106) Calcium 8.3 mg/dL L mg/dL (8.4-10.2) Total Bilirubin 1.2 mg/dL mg/dL (0.2-1.3) AST 40 U/L U/L (15-46) ALT 35 U/L U/L (13-69) Alkaline Phosphatase 83 U/L U/L (38-126) Troponin I 0.04 ng/mL ng/mL (0.03-0.06) NT-Pro-B Natriuret Pep 692.9 pg/mL H pg/mL (15.0-450.0) Total Protein 5.9 g/dL L g/dL (6.3-8.2) Albumin 3.5 g/dL g/dL (3.5-5.0) Urine Color Urine Appearance Urine pH Ur Specific [place] Urine Protein Urine Ketones Urine Occult Blood Urine Nitrite Urine Bilirubin Urine Urobilinogen Ur Leukocyte Esterase Urine Glucose 06/28/18 15:41 WBC RBC Hgb Hct MCV MCH MCHC RDW Plt Count Neut % (Auto) Lymph % (Auto) Cameron % (Auto) Eos % (Auto) Baso % (Auto) Neut # (Auto) Lymph # (Auto) Cameron # (Auto) Eos # (Auto) Baso # (Auto) Sodium Potassium Chloride Carbon Dioxide BUN Creatinine Est GFR ( Amer) Est GFR (Non-Af Amer) Glucose Calcium Total Bilirubin AST ALT Alkaline Phosphatase Troponin I NT-Pro-B Natriuret Pep Total Protein Albumin Urine Color Red (YELLOW) Urine Appearance Unk (CLEAR) Urine pH 8.5 (5.0 - 8.0) Ur Specific [place] 1.020 (1.010-1.030) Urine Protein 3+ mg/dL H mg/dL (NEGATIVE) Urine Ketones 4+ mg/dL H mg/dL (NEGATIVE) Urine Occult Blood 3+ H (NEGATIVE) Urine Nitrite Positive H (NEGATIVE) Urine Bilirubin 3+ H (NEGATIVE) Urine Urobilinogen 4.0 Eu H Eu (0.2-1.0) Ur Leukocyte Esterase 3+ H (NEGATIVE) Urine Glucose Trace mg/dL mg/dL (NEGATIVE) - Orders Orders: ED Orders Category Date Time Status Ramirez [Urinary catheterization] 1T Care 06/28/18 12:[address] IV Lock 1T Care 06/28/18 12:24 Active CHEST 1VIEW [RAD] Stat Exams 06/28/18 Completed PELVIS AP 1 OR 2 VIEWS [RAD] Stat Exams 06/28/18 Completed US PELVIS LIMITED/BLADDER/F/U [US] Stat Exams 06/28/18 Completed CBC/PLATELET/DIFF Routine Lab 06/28/18 Completed CMP Routine Lab 06/28/18 Completed NT-proBNP Stat Lab 06/28/18 Completed TROPONIN I (cTnI) Stat Lab 06/28/18 Completed UA MACRO DIP ONLY Routine Lab 06/28/18 15:41 Completed URINE CULTURE Routine Lab 06/28/18 15:41 Completed 0.9 % Sodium Chloride [Normal Saline] 1,000 ml Med 06/28/18 13:12 Discontinued IV .STK-MED 0.9 % Sodium Chloride [Normal Saline] 1,000 ml Med 06/28/18 12:30 Discontinued IV Q10H Hydralazine HCl [Apresoline] Med 06/28/18 13:32 Discontinued 25 mg PO NOW ONE Levofloxacin 500Mg/D5w 100Ml [Levaquin] 100 ml Med 06/28/18 14:08 Discontinued IV .STK-MED Levofloxacin 500Mg/D5w 100Ml [Levaquin] 500 mg Med 06/28/18 14:01 Discontinued Premix Bag [Premix Fluid] 1 bag IV NOW Potassium Chloride [Klor-Con M20] Med 06/28/18 13:45 Discontinued 20 meq PO NOW ONE EKG WITH COMPARISON Stat Ther 06/28/18 Completed <Clarence Fitzgerald - Last Filed: 07/01/18 19:07> General Adult Physical Exam - PHYSICAL EXAM GENERAL APPEARANCE: no distress EENT: GUERO NECK: supple RESPIRATORY: no resp distress, other (diminished breath sounds bilaterally) CVS: reg rate & rhythm, heart sounds normal ABDOMEN: soft, tenderness (RLQ, LLQ) BACK: no CVA tenderness SKIN: warm/dry, normal color EXTREMITIES: non-tender NEURO: oriented X3 <Cristela Aguiar - Last Filed: 06/28/18 15:22> Discharge Decision to Admit: NO Date of Decison to Admit: 06/28/18 Decision Time: 15:20 <Cristela Aguiar - Last Filed: 06/28/18 15:22> <Clarenec Fitzgerald - Last Filed: 07/01/18 19:07> Clincal Impression: Acute cystitis with hematuria, Accelerated essential hypertension Referrals: Brennen Pitts MD [Primary Care Provider] - 2 Days Additional Instructions: 1. Strongly recommend physical therapy and occupational therapy 2. Take your Lisinopril as directed to control blood pressure 3. Drink plenty of fluids to maintain proper hydration. Avoid caffeine 4. Take antibiotics as directed 5. Follow up with Dr. Mnejivar within 1 week 6. Return to ER with new or worsening symptoms Condition: Stable Disposition: 01 HOME, SELF-CARE
[2018-06-28 12:53] LABS: BASOPHILS % 0.7 (0.0-1.5); EOSINOPHILS % 1.7 % (0.0-6.8); MEAN CORPUSCULAR HEMOGLOBIN 30.5 pg (28.0-34.0); MONOCYTES % 6.7 % (0.0-11.0); NEUTROPHILS # 5.1 # k/uL (1.4-7.7)
[2018-06-28] MEDS ORDERED: 0.9 % SODIUM CHLORIDE 1,000 ML IV ONE (13:12)
[2018-06-28 13:13] LABS: eGFR (Non-African) > 60
[2018-06-28] MEDS ORDERED: HYDRALAZINE HCL 25 MG TABLET PO ONE (13:32)
[2018-06-28] MEDS ORDERED: POTASSIUM CHLORIDE 20 MEQ TABLET.ER PO ONE (13:45)
[2018-06-28 13:57] LABS: COLOR,URINE RED (YELLOW)
[2018-06-28 13:58] LABS: OCCULT BLOOD,URINE 3+ (NEGATIVE); PH URINE 8.5 (5.0 - 8.0)
[2018-06-28] MEDS ORDERED: LEVOFLOXACIN 500MG/D5W 100ML 500 MG in PREMIX BAG 1 BAG IV ONE (14:01)
[2018-06-28] MEDS ORDERED: LEVOFLOXACIN 500MG/D5W 100ML 100 ML IV ONE (14:08)
--- NOTE | 2018-06-28 14:58 | Diagnostic Imaging Report ---
SHAWNEE DENG [facility] [address] [facility] [address] [place] [address]. [address] Report Submission Date: Jun 28, 2018 2:53:41 PM ROOF PROMENADE TILE SETTER Patient Study Name: GWENDOLYN THOMPSON Date: Jun 28, 2018 2:35:19 PM ROOF PROMENADE TILE SETTER Modality Type: CR Gender: F Description: PELVIS AP 1 VIEW : 33 Institution: [facility] Physician: SHAWNEE DENG Examination: Plain film pelvis History: VAGINAL BLEEDING AND PELVIC PAIN. Comparison exams: None provided Findings: Single view of the pelvis demonstrates osteopenia. Rotated examination. Articular degenerative changes - most pronounced involving the right hip. No obvious displaced cortical lucency. Soft tissue attenuation. Catheter in bladder. Impression: Osteopenia and degenerative changes. No obvious displaced cortical lucency. Consider obtaining limited CT pelvis examination to further evaluate if clinically warranted. Electronically signed on Jun 28, 2018 2:53:41 PM ROOF PROMENADE TILE SETTER by: Paul STEWART
--- NOTE | 2018-06-28 15:01 | Diagnostic Imaging Report ---
SHAWNEE DENG [facility] [address] [facility] [address] [address] Report Submission Date: Jun 28, 2018 1:04:29 PM DISTRICT FIRE MANAGEMENT OFFICER Patient Study Name: GWENDOLYN THOMPSON Date: Jun 28, 2018 12:36:11 PM DISTRICT FIRE MANAGEMENT OFFICER Modality Type: CR Gender: F Description: CHEST 1 VIEW : 33 Institution: [facility] Physician: SHAWNEE DENG Examination: Portable chest History: Evaluate lungs. Weakness Comparison exam: 24 May 2018 Findings: Single view of the chest demonstrates a normal cardiac and mediastinal silhouette. Tortuous aorta. Parenchymal fullness right lower lung. No blunting of the costophrenic margins. Articular degenerative. Impression: Right lung base parenchymal haziness. No effusion. Electronically signed on Jun 28, 2018 1:04:29 PM DISTRICT FIRE MANAGEMENT OFFICER by: Paul STEWART
[2018-06-28 15:41] VITALS: BP 144/83
--- NOTE | 2018-06-28 15:46 | Diagnostic Imaging Report ---
SHAWNEE DENG [facility] [address] [facility] [address] [place] [address]. [address] Report Submission Date: Jun 28, 2018 3:32:52 PM HUNTER GUIDE Patient Study Name: GWENDOLYN THOMPSON Date: Jun 28, 2018 2:23:20 PM HUNTER GUIDE Modality Type: US Gender: F Description: US PELVIS TRANS ABD : 33 Institution: [facility] Physician: SHAWNEE DENG Examination: Ultrasound pelvis History: VAGINAL BLEEDING AND PELVIC PAIN Comparison exams: None available Findings: Limited sonographic evaluation of the pelvis. No fluid within the bladder. No gross pelvic mass or lesion identified. Impression: Limited evaluation without gross mass or pelvic lesion identified. Electronically signed on Jun 28, 2018 3:32:52 PM HUNTER GUIDE by: Paul STEWART
== END 2018-06-28 15:50 | disposition home or self-care (01) ==
LOC: ED 12:19
DX: I10 Essential (primary) hypertension (principal); N30.01 Acute cystitis with hematuria; B96.20 Unspecified Escherichia coli [E. coli] as the cause of diseases classified elsewhere
CPT/HCPCS: 36415; 51702; 71045; 72170; 76857; 80053; 81002; 83880; 84484; 85025; 87086; 87186; 93005; 96365; 99284; 99285; A9270; J1956; J7030

== ENCOUNTER 2018-08-31 08:21 | Outpatient (CLI) | payer MEDICARE ==
[2018-07-07 10:01] VITALS: BP 161/77
--- NOTE | 2018-09-01 17:45 | OP Clinic Progress Note ---
SUBJECTIVE: Jeri Gonzalez is an 82-year-old female who was seen in the office a few days ago for an irritated/ingrown toenail of the right great toe. She had been placed on antibiotics by Dr. Menjivar and was sent to see me for toenail treatment. The patient and I discussed the other day about removing the entire toenail due to the irritation noted around the periphery of the nail all around it. The patient also has been taking her antibiotics appropriately and it is looking improved but still requires avulsion due to the obvious irritation and slight redness about the toe still. The patient does not admit to any fevers, chills, nausea, vomiting, shortness of breath or chest pain at this time. The patients mental status was of question and was noted to be of concern to get her consent alone for the procedure. More consent was obtained from Don at the nursing facility as well as Dr. Menjivar over the phone as well as our Assessment Technician, Vijay Parikh, who came and questioned the patient himself and decided with me that we both felt this needed to be done regardless and that she still is her own person and they are working on getting a designated power of divorce attorney for medical purposes but it is not completed yet. A decision was made to go forward with the procedure today. Consent was signed by the patient today. OBJECTIVE: Vitals: Temperature 97.2 degrees Fahrenheit, heart rate 94, respiration rate 16, blood pressure 155/83. O2 saturation is 98% on room air. Vascular: 1+ DP and PT pulses, right foot. Capillary refill time is less than 3 seconds to the toes of the right foot. There is mild edema noted at the right great toe. Dermatologic: The right great toenail is pointing in an upward direction and is loose. There is a previous small lesion noted on the underside of the nail on the distal edge where a bulla was lanced with a #15 blade when I saw her a few days ago. There is no purulence or malodor noted. There is mild irritation/redness/erythema noted on the right great toe overall. Musculoskeletal: There is still mild pain on palpation noted with pressure on top of the right great toenail. No pain to palpation noted on the medial lateral or proximal nail borders. No other gross abnormalities are noted, right foot. Neurologic: Light touch sensation is intact to the toes, right foot. ASSESSMENT AND PLAN: 1. Onycholysis. 2. Onychocryptosis. PROCEDURE #1: Consent was obtained as described above in the Subjective. The patient agreed and understood the risks and benefits that include but are not limited to bleeding and infection. With consent from the patient as well as others mentioned above, the procedure was performed with a total nail avulsion of the right great toenail. An alcohol swab was used to cleanse the toe and 6 mL of a 1:1 mix of 2% lidocaine plain and 0.5% Marcaine plain were injected into the base of the right great toe. Betadine prep was performed and anesthesia was obtained/checked and the right great toenail was then avulsed in its entirety. The nail bed was free of any laceration or concerning areas. The wound site had mild bleeding which was controlled with pressure. The patient tolerated the procedure well. The site was rinsed with a copious amount of normal saline and dressed with triple antibiotic ointment, 4x4 gauze, 2-inch Arron and 1-inch Coban beginning on the toe and ending on the distal forefoot to help hold it on. The patient had no further questions or concerns. Instructions were given to the caregiver as well as written on their paper that they brought in regarding care of the toe going forward. She is to return to the clinic in 1 week on Wednesday for follow-up. Luba PolkP.M. (Dictated/Not Signed) Anthony Job#: [id number]
== END 2018-08-31 08:23 ==
LOC: POD 08:21
PROVIDERS: ATTEND Podiatrist Foot & Ankle Surgery
DX: L60.0 Ingrowing nail (principal); L60.1 Onycholysis; L53.9 Erythematous condition, unspecified; M79.674 Pain in right toe(s); R06.09 Other forms of dyspnea
CPT/HCPCS: 11730; J2001; J3490; A4554